=== PATIENT | female | born 1945 | race Caucasian/White ===

== ENCOUNTER → 2023-11-03 11:31 | Outpatient (REF) | payer OTHER, SELFPAY | LOC: HWWDC 11:31 | PROVIDERS: ATTENDING PHYSICIAN Family Medicine | DX: Z12.31 Encounter for screening mammogram for malignant neoplasm of breast (principal) | CPT/HCPCS: 77063; 77067 ==

== ENCOUNTER → 2024-07-13 09:50 | Outpatient (REF) | payer OTHER, SELFPAY | LOC: HWRAD 09:50 | PROVIDERS: ATTENDING PHYSICIAN Family Medicine; OTHER PHYSICIAN Orthopaedic Surgery Sports Medicine; REFERRING PHYSICIAN Internal Medicine Gastroenterology | DX: M85.80 Other specified disorders of bone density and structure, unspecified site (principal) | CPT/HCPCS: 77080 ==

== ENCOUNTER → 2025-06-19 13:52 | Outpatient (REF) | payer OTHER, SELFPAY | LOC: HWWDC 13:52 | PROVIDERS: ATTENDING PHYSICIAN Family Medicine | DX: Z12.31 Encounter for screening mammogram for malignant neoplasm of breast (principal) | CPT/HCPCS: 77063; 77067 ==

== ENCOUNTER → 2025-07-06 14:53 | Outpatient (REF) | payer OTHER, SELFPAY | LOC: RAD 14:53 | DX: R26.81 Unsteadiness on feet (principal); R29.810 Facial weakness; E78.2 Mixed hyperlipidemia; R42 Dizziness and giddiness | CPT/HCPCS: 70496; 70498; Q9967 ==